=== PATIENT | male | born 1965 | race African-American/Black ===

== ENCOUNTER 2023-02-04 18:11 | Inpatient (IN) | payer MEDICAID ==
[~2023-02-04] VITALS: Ht 152.4 cm; Wt 125.6 kg
[2023-02-04 19:18] LABS: Basophils # (auto) 0 10 ^3/uL (0-0.2); Basophils % (auto) 0.4 % (0.0-2.0); Eosinophils # (auto) 0.1 10 ^3/uL (0-0.8); Eosinophils % (auto) 0.9 % (0.0-7.0); Hematocrit 42.8 % (41.0-53.0); Hemoglobin 14.5 g/dL (13.5-17.5); Lymphocytes # (auto) 1.2 10 ^3/uL (0.4-5.4); Lymphocytes % (auto) 12.9 % (10.0-50.0); Mean Corpuscular Hemoglobin 30.7 pg (28.0-32.0); Mean Corpuscular Hgb Conc. 33.8 g/dL (32.0-36.0); Mean Corpuscular Volume 90.9 fL (80.0-100.0); Monocytes # (auto) 0.7 10 ^3/uL (0-1.3); Monocytes % (auto) 7.5 % (0.0-12.0); Neutrophils # (auto) 7.1 10 ^3/uL (1.6-8.6); Neutrophils % (auto) 78.3 % (37.0-80.0); Nucleated Red Blood Cells % 0.1 %; Red Blood Cells 4.72 10^6/uL (4.5-5.90); Red Cell Distribution Width 13.4 % (11.8-14.3); White Blood Cell 9.1 10^3/uL (4.4-10.8)
[2023-02-04 19:37] LABS: Albumin 3.8 g/dL (3.4-5.0); Calcium 9.6 mg/dL (8.5-10.1); Potassium 3.3 mmol/L (3.5-5.1)
[2023-02-04 19:41] LABS: BUN/Creatinine Ratio 12.4 (10.0-20.0); Bilirubin, Total 0.9 mg/dL (0.2-1.0); Total Protein 7.1 g/dL (6.4-8.2)
[2023-02-04 20:02] LABS: Acetaminophen < 2.0 ug/mL (10-30); Salicylate < 1.7 mg/dL (2.8-20.0)
[2023-02-04] MEDS ORDERED: LORazepam 0.5 MG TAB PO ONE (20:45)
[2023-02-05] MEDS ORDERED: LORazepam 2MG/ML-1ML VIAL IM ONE (00:15)
[2023-02-05] MEDS ORDERED: diphenhdrAMINE HCL 50 MG/1 ML VL IV ONE (00:15)
[2023-02-05] MEDS ORDERED: HALOPERIDOL LACTATE 5 MG/ML INJ VIAL IM ONE (00:15)
[2023-02-05] MEDS ORDERED: HALOPERIDOL LACTATE 5 MG/ML INJ VIAL IV ONE (00:15)
[2023-02-05] MEDS ORDERED: LORazepam 2MG/ML-1ML VIAL IV ONE (00:15)
[2023-02-05] MEDS ORDERED: diphenhdrAMINE HCL 50 MG/1 ML VL IM ONE (00:15)
[2023-02-05] MEDS ORDERED: ONDANSETRON HCL 4 MG/2 ML VIAL IV PRN (03:15)
[2023-02-05] MEDS ORDERED: SODIUM CHLORIDE 0.9% 1,000 ML IV ONE (03:15)
[2023-02-05] MEDS: PANTOPRAZOLE 40 MG TAB PO SCH (10:16)
[2023-02-05] MEDS ORDERED: POTASSIUM EFFERVESENT TAB 25 MEQ PO ONE (16:00)
[2023-02-05] MEDS: SODIUM CHLORIDE 0.9% 1,000 ML IV SCH (17:03)
[2023-02-06] MEDS: SODIUM CHLORIDE 0.9% 1,000 ML IV SCH ×2 (02:15→12:40)
[2023-02-06] MEDS ORDERED: SERTRALINE HCL 50 MG TAB PO ONE (03:30)
[2023-02-06 06:12] LABS: Basophils # (auto) 0 10 ^3/uL (0-0.2); Basophils % (auto) 0.4 % (0.0-2.0); Eosinophils # (auto) 0.2 10 ^3/uL (0-0.8); Eosinophils % (auto) 3.1 % (0.0-7.0); Hematocrit 37.1 % (41.0-53.0); Hemoglobin 12.8 g/dL (13.5-17.5); Lymphocytes # (auto) 1.7 10 ^3/uL (0.4-5.4); Lymphocytes % (auto) 23.6 % (10.0-50.0); Mean Corpuscular Hemoglobin 31.7 pg (28.0-32.0); Mean Corpuscular Hgb Conc. 34.4 g/dL (32.0-36.0); Mean Corpuscular Volume 92.1 fL (80.0-100.0); Monocytes # (auto) 0.7 10 ^3/uL (0-1.3); Monocytes % (auto) 9.8 % (0.0-12.0); Neutrophils # (auto) 4.5 10 ^3/uL (1.6-8.6); Neutrophils % (auto) 63.1 % (37.0-80.0); Nucleated Red Blood Cells % 0.2 %; Red Blood Cells 4.03 10^6/uL (4.5-5.90); Red Cell Distribution Width 13.3 % (11.8-14.3); White Blood Cell 7.1 10^3/uL (4.4-10.8)
[2023-02-06 06:27] LABS: Potassium 3.6 mmol/L (3.5-5.1)
[2023-02-06 06:35] LABS: BUN/Creatinine Ratio 19.5 (10.0-20.0); Bilirubin, Total 0.8 mg/dL (0.2-1.0); Calcium 8.8 mg/dL (8.5-10.1); Phosphorus 2.8 mg/dL (2.5-4.90); Total Protein 6.2 g/dL (6.4-8.2); Uric Acid 6.3 mg/dL (3.5-7.2)
[2023-02-06 08:38] LABS: Urine Bacteria NONE SEEN /hpf (None Seen); Urine Blood Negative /uL (Negative); Urine Mucus FEW (None Seen); Urine Specific Gravity 1.028 (1.001-1.035); Urine WBC <1 /hpf (0 - 3)
[2023-02-06 08:54] LABS: Protein, Urine 32.1 mg/dL (0.0-11.9)
[2023-02-06 08:59] LABS: Alcohol, Urine < 3.0 mg/dL (0-10); Amphetamine Screen, Urine POSITIVE (NEGATIVE); Barbiturate Scree,Urine NEGATIVE (NEGATIVE); Benzodiazephine Screen, Urine NEGATIVE (NEGATIVE); Cannabinoid Screen, Urine NEGATIVE (NEGATIVE); Cocaine Screen, Urine NEGATIVE (NEGATIVE); Phencyclidine Screen, Urine NEGATIVE (NEGATIVE)
[2023-02-06 09:06] LABS: Opiate Scree,Urine NEGATIVE (NEGATIVE)
[2023-02-06] MEDS: PANTOPRAZOLE 40 MG TAB PO SCH (10:26)
[2023-02-06] MEDS: risperiDONE 1 MG TAB PO SCH (10:26)
[2023-02-07] MEDS ORDERED: LORazepam 2MG/ML-1ML VIAL IV PRN (09:00)
[2023-02-07] MEDS: risperiDONE 1 MG TAB PO SCH (10:08)
[2023-02-07] MEDS: PANTOPRAZOLE 40 MG TAB PO SCH (10:19)
[2023-02-07] MEDS: ACETAMINOPHEN 325 MG TAB PO PRN ×2 (10:30→22:09)
[2023-02-07 15:22] VITALS: BP 121/76
[2023-02-07 17:00] VITALS: BP 131/77
[2023-02-07 20:00] VITALS: BP 129/79
[2023-02-07 22:00] VITALS: BP 129/79
[2023-02-07] MEDS ORDERED: AMLO1TAB22 PO (22:03)
[2023-02-07] MEDS ORDERED: PERCOT PO (22:03)
[2023-02-07] MEDS: TEMAZEPAM 15 MG CAP PO PRN (22:09)
[2023-02-08 05:00] VITALS: BP 120/66
[2023-02-08] MEDS: OXYCODONE W/ ACETAMINOPHEN 5/325MG TABLET PO PRN ×3 (06:02→21:07)
[2023-02-08 06:25] LABS: Potassium 3.4 mmol/L (3.5-5.1)
[2023-02-08 06:31] LABS: BUN/Creatinine Ratio 12.7 (10.0-20.0)
[2023-02-08 09:00] VITALS: BP 129/72
[2023-02-08] MEDS: risperiDONE 1 MG TAB PO SCH (09:09)
[2023-02-08] MEDS: PANTOPRAZOLE 40 MG TAB PO SCH (09:09)
[2023-02-08 13:00] VITALS: BP 117/73
[2023-02-08 17:04] VITALS: BP 145/80
[2023-02-08] MEDS: TEMAZEPAM 15 MG CAP PO PRN (21:07)
[2023-02-08 22:00] VITALS: BP 119/71
[2023-02-08] MEDS ORDERED: LORazepam 2MG/ML-1ML VIAL IV PRN (22:00)
[2023-02-09 05:00] VITALS: BP 139/88
[2023-02-09 06:22] LABS: Potassium 3.5 mmol/L (3.5-5.1)
[2023-02-09 06:37] LABS: BUN/Creatinine Ratio 13.3 (10.0-20.0); Calcium 9.1 mg/dL (8.5-10.1)
[2023-02-09 09:00] VITALS: BP 124/80
[2023-02-09] MEDS: risperiDONE 1 MG TAB PO SCH (09:02)
[2023-02-09] MEDS: PANTOPRAZOLE 40 MG TAB PO SCH (09:02)
[2023-02-09] MEDS: SERTRALINE HCL 50 MG TAB PO SCH (09:02)
[2023-02-09] MEDS: OXYCODONE W/ ACETAMINOPHEN 5/325MG TABLET PO PRN ×2 (09:03→21:02)
[2023-02-09 13:00] VITALS: BP 122/68
[2023-02-09 17:00] VITALS: BP 126/79
[2023-02-09] MEDS: TEMAZEPAM 15 MG CAP PO PRN (21:02)
[2023-02-09 22:00] VITALS: BP 127/81
[2023-02-10 05:00] VITALS: BP 151/88
[2023-02-10 09:00] VITALS: BP 156/81
[2023-02-10] MEDS: PANTOPRAZOLE 40 MG TAB PO SCH (09:43)
[2023-02-10] MEDS: SERTRALINE HCL 50 MG TAB PO SCH (09:43)
[2023-02-10] MEDS: amLODIPine BESYLATE 5 MG TAB PO SCH (09:43)
[2023-02-10] MEDS: risperiDONE 1 MG TAB PO SCH (09:43)
[2023-02-10 13:00] VITALS: BP 120/83
[2023-02-10 17:00] VITALS: BP 105/73
[2023-02-10] MEDS: TEMAZEPAM 15 MG CAP PO PRN (21:03)
[2023-02-10] MEDS: OXYCODONE W/ ACETAMINOPHEN 5/325MG TABLET PO PRN (21:32)
[2023-02-10 22:11] VITALS: BP 146/84
[2023-02-11 04:49] VITALS: BP 139/74
[2023-02-11 08:30] VITALS: BP 117/78
[2023-02-11] MEDS: risperiDONE 1 MG TAB PO SCH (09:27)
[2023-02-11] MEDS: SERTRALINE HCL 50 MG TAB PO SCH (09:28)
[2023-02-11] MEDS: amLODIPine BESYLATE 5 MG TAB PO SCH (09:28)
[2023-02-11] MEDS: PANTOPRAZOLE 40 MG TAB PO SCH (09:28)
[2023-02-11] MEDS: OXYCODONE W/ ACETAMINOPHEN 5/325MG TABLET PO PRN ×2 (09:31→23:04)
[2023-02-11 13:00] VITALS: BP 124/72
[2023-02-11 22:00] VITALS: BP 120/81
[2023-02-11] MEDS: TEMAZEPAM 15 MG CAP PO PRN (22:18)
[2023-02-12 05:00] VITALS: BP 132/72
[2023-02-12 09:00] VITALS: BP 124/80
[2023-02-12] MEDS: PANTOPRAZOLE 40 MG TAB PO SCH (09:03)
[2023-02-12] MEDS: SERTRALINE HCL 50 MG TAB PO SCH (09:03)
[2023-02-12] MEDS: risperiDONE 1 MG TAB PO SCH (09:04)
[2023-02-12] MEDS: amLODIPine BESYLATE 5 MG TAB PO SCH (09:05)
[2023-02-12] MEDS: OXYCODONE W/ ACETAMINOPHEN 5/325MG TABLET PO PRN ×2 (10:08→22:09)
[2023-02-12] MEDS: DOCUSATE SOD 100 MG CAP PO SCH ×2 (10:08→22:08)
[2023-02-12 13:00] VITALS: BP 120/79
[2023-02-12 17:00] VITALS: BP 126/84
[2023-02-12 22:00] VITALS: BP 135/63
[2023-02-13 05:00] VITALS: BP 127/75
[2023-02-13 08:00] VITALS: BP 127/75
[2023-02-13 09:00] VITALS: BP 121/76
[2023-02-13] MEDS: DOCUSATE SOD 100 MG CAP PO SCH ×2 (09:57→21:59)
[2023-02-13] MEDS: risperiDONE 1 MG TAB PO SCH (09:58)
[2023-02-13] MEDS: SERTRALINE HCL 50 MG TAB PO SCH (09:58)
[2023-02-13] MEDS: amLODIPine BESYLATE 5 MG TAB PO SCH (09:58)
[2023-02-13] MEDS: PANTOPRAZOLE 40 MG TAB PO SCH (09:58)
[2023-02-13] MEDS: OXYCODONE W/ ACETAMINOPHEN 5/325MG TABLET PO PRN ×2 (10:05→22:00)
[2023-02-13 17:00] VITALS: BP 117/69
[2023-02-13 21:31] VITALS: BP 121/73
[2023-02-14 04:48] VITALS: BP 113/56
[2023-02-14 08:00] VITALS: BP 132/77
[2023-02-14] MEDS: DOCUSATE SOD 100 MG CAP PO SCH ×2 (08:37→21:37)
[2023-02-14] MEDS: SERTRALINE HCL 50 MG TAB PO SCH (08:37)
[2023-02-14] MEDS: risperiDONE 1 MG TAB PO SCH ×2 (08:38→21:37)
[2023-02-14] MEDS: PANTOPRAZOLE 40 MG TAB PO SCH (08:38)
[2023-02-14] MEDS: OXYCODONE W/ ACETAMINOPHEN 5/325MG TABLET PO PRN (08:48)
[2023-02-14] MEDS: amLODIPine BESYLATE 5 MG TAB PO SCH (08:51)
[2023-02-14 09:00] VITALS: BP 132/77
[2023-02-14 13:00] VITALS: BP 137/74
[2023-02-14 22:00] VITALS: BP 110/71
[2023-02-15 05:00] VITALS: BP 137/77
[2023-02-15 08:00] VITALS: BP 132/77
[2023-02-15 09:00] VITALS: BP 132/63
[2023-02-15] MEDS: SERTRALINE HCL 50 MG TAB PO SCH (09:10)
[2023-02-15] MEDS: PANTOPRAZOLE 40 MG TAB PO SCH (09:10)
[2023-02-15] MEDS: risperiDONE 1 MG TAB PO SCH ×2 (09:11→22:37)
[2023-02-15] MEDS: OXYCODONE W/ ACETAMINOPHEN 5/325MG TABLET PO PRN ×2 (09:14→21:25)
[2023-02-15] MEDS: amLODIPine BESYLATE 5 MG TAB PO SCH (09:15)
[2023-02-15] MEDS: DOCUSATE SOD 100 MG CAP PO SCH ×2 (09:15→22:00)
[2023-02-15 13:00] VITALS: BP 108/67
[2023-02-15 17:00] VITALS: BP 109/70
[2023-02-15 22:00] VITALS: BP 129/81
[2023-02-16 05:00] VITALS: BP 113/65
[2023-02-16 08:00] VITALS: BP 119/85
[2023-02-16 09:07] VITALS: BP 119/82
[2023-02-16] MEDS: DOCUSATE SOD 100 MG CAP PO SCH ×2 (10:00→21:15)
[2023-02-16] MEDS: PANTOPRAZOLE 40 MG TAB PO SCH (10:07)
[2023-02-16] MEDS: OXYCODONE W/ ACETAMINOPHEN 5/325MG TABLET PO PRN ×2 (10:07→21:14)
[2023-02-16] MEDS: amLODIPine BESYLATE 5 MG TAB PO SCH (10:08)
[2023-02-16] MEDS: SERTRALINE HCL 50 MG TAB PO SCH (10:08)
[2023-02-16] MEDS: risperiDONE 1 MG TAB PO SCH ×2 (10:09→21:15)
[2023-02-16 11:01] VITALS: BP 110/66
[2023-02-16 15:46] VITALS: BP 108/55
[2023-02-16 22:00] VITALS: BP 127/67
[2023-02-17 05:00] VITALS: BP 118/78
[2023-02-17 08:52] VITALS: BP 127/75
[2023-02-17] MEDS: DOCUSATE SOD 100 MG CAP PO SCH ×2 (09:25→22:14)
[2023-02-17] MEDS: PANTOPRAZOLE 40 MG TAB PO SCH (09:25)
[2023-02-17] MEDS: amLODIPine BESYLATE 5 MG TAB PO SCH (09:26)
[2023-02-17] MEDS: risperiDONE 1 MG TAB PO SCH ×2 (09:26→22:14)
[2023-02-17] MEDS: SERTRALINE HCL 50 MG TAB PO SCH (09:27)
[2023-02-17] MEDS ORDERED: HYDROcodone-ACET 5/325MG TAB PO PRN (09:30)
[2023-02-17 13:00] VITALS: BP 132/75
[2023-02-17] MEDS: HYDROcodone-ACET 5/325MG TAB PO PRN ×2 (15:56→22:13)
[2023-02-17 16:53] VITALS: BP 132/61
[2023-02-17 22:00] VITALS: BP 130/77
[2023-02-18 05:00] VITALS: BP 130/67
[2023-02-18] MEDS: risperiDONE 1 MG TAB PO SCH ×2 (08:03→20:37)
[2023-02-18] MEDS: PANTOPRAZOLE 40 MG TAB PO SCH (08:03)
[2023-02-18] MEDS: amLODIPine BESYLATE 5 MG TAB PO SCH (08:04)
[2023-02-18] MEDS: HYDROcodone-ACET 5/325MG TAB PO PRN ×3 (08:04→20:37)
[2023-02-18] MEDS: SERTRALINE HCL 50 MG TAB PO SCH (08:04)
[2023-02-18] MEDS: DOCUSATE SOD 100 MG CAP PO SCH ×2 (08:04→20:37)
[2023-02-18 08:40] VITALS: BP 131/70
[2023-02-18 13:42] VITALS: BP 129/78
[2023-02-18 17:24] VITALS: BP 126/71
[2023-02-18] MEDS: CELECOXIB 100 MG CAP PO SCH (20:36)
[2023-02-18 22:00] VITALS: BP 113/49
[2023-02-19 02:00] VITALS: BP 119/66
[2023-02-19] MEDS: PANTOPRAZOLE 40 MG TAB PO SCH (08:15)
[2023-02-19] MEDS: amLODIPine BESYLATE 5 MG TAB PO SCH (08:15)
[2023-02-19] MEDS: DOCUSATE SOD 100 MG CAP PO SCH ×2 (08:16→21:32)
[2023-02-19] MEDS: risperiDONE 1 MG TAB PO SCH ×2 (08:16→21:32)
[2023-02-19] MEDS: SERTRALINE HCL 50 MG TAB PO SCH (08:16)
[2023-02-19] MEDS: CELECOXIB 100 MG CAP PO SCH ×2 (08:16→21:32)
[2023-02-19] MEDS: HYDROcodone-ACET 5/325MG TAB PO PRN (08:18)
[2023-02-19 09:16] VITALS: BP 138/81
[2023-02-19 13:00] VITALS: BP 133/71
[2023-02-19] MEDS: OXYCODONE W/ ACETAMINOPHEN 5/325MG TABLET PO PRN ×2 (14:13→20:36)
[2023-02-19 16:33] VITALS: BP 122/82
[2023-02-19 20:00] VITALS: BP 144/87
[2023-02-19 21:57] VITALS: BP 144/87
[2023-02-20] MEDS: OXYCODONE W/ ACETAMINOPHEN 5/325MG TABLET PO PRN ×3 (02:35→16:04)
[2023-02-20 05:00] VITALS: BP 127/71
[2023-02-20] MEDS: SERTRALINE HCL 50 MG TAB PO SCH (09:42)
[2023-02-20] MEDS: amLODIPine BESYLATE 5 MG TAB PO SCH (09:43)
[2023-02-20] MEDS: PANTOPRAZOLE 40 MG TAB PO SCH (09:43)
[2023-02-20] MEDS: CELECOXIB 100 MG CAP PO SCH (09:44)
[2023-02-20] MEDS: risperiDONE 1 MG TAB PO SCH (09:44)
[2023-02-20] MEDS: DOCUSATE SOD 100 MG CAP PO SCH (09:45)
[2023-02-20 13:00] VITALS: BP 130/62
[2023-02-20 17:00] VITALS: BP 113/70
== END 2023-02-20 19:30 | disposition short-term general hospital (02) | DRG 469 ==
LOC: EDBD 18:11 → ER 18:11 → OVERFLOW 02-05 03:09 → WEST WING 02-07 14:07
PROVIDERS: ADMIT Nurse Practitioner Acute Care; ATTEND Nurse Practitioner Acute Care
DX: N17.0 Acute kidney failure with tubular necrosis (principal); G92.8 Other toxic encephalopathy; F20.0 Paranoid schizophrenia; R45.851 Suicidal ideations; Z68.43 Body mass index [BMI] 50.0-59.9, adult; E86.0 Dehydration; E66.9 Obesity, unspecified; F15.10 Other stimulant abuse, uncomplicated; G89.29 Other chronic pain; M19.90 Unspecified osteoarthritis, unspecified site; H91.90 Unspecified hearing loss, unspecified ear; F32.A Depression, unspecified; N18.9 Chronic kidney disease, unspecified; I12.9 Hypertensive chronic kidney disease with stage 1 through stage 4 chronic kidney disease, or unspecified chronic kidney disease; Z59.02 Unsheltered homelessness
CPT/HCPCS: 36415; 70450; 71045; 76775; 80048; 80053; 80307; 80329; 81001; 82570; 83735; 83880; 84100; 84156; 84300; 84443; 84550; 85025; 93005; 96372; G0378